=== PATIENT | female | born 1945 | race Caucasian/White ===

== ENCOUNTER 2018-10-07 16:59 | Inpatient (IN) | payer MEDICARE, OTHER ==
[~2018-10-07] VITALS: Ht 175.3 cm; Wt 79.2 kg
--- OUTSIDE RECORDS SUMMARY | 2018-10-07 17:03 | XMS REPORT ---
Author Author CONNIE WAY Organization [facility] Address [address] [place] [address] Care Team Providers Care Product Development Coordinator Name Role Phone CONNIE WAY Unavailable PROBLEMS Type Condition ICD9-CM Code [id number] Code Onset Dates Condition Status SNOMED Code Problem Acquired hypothyroidism E03.9 Active 413704562 Problem HTN (hypertension), benign I10 Active 99762988 Problem Hyperlipidemia E78.5 Active 08135044 Problem Osteoporosis M81.0 Active 75100046 ALLERGIES Substance Reaction Event Type Date Status Lamisil rash Drug Allergy Sep, Active adhesive other Non Drug Allergy Sep, Active ENCOUNTERS Encounter Location Date Diagnosis [place] [id number] [place] [phone] Sep, [address] [address] Sep, Hyperlipidemia E78.5 ; Osteoporosis M81.0 ; Acquired hypothyroidism E03.9 ; HTN (hypertension), benign I10 ; Strain of left shoulder, initial encounter S46.912A and Breast pain, right N64.[address] [phone] 12 Sep, 2018 HTN (hypertension), benign I10 and Acquired hypothyroidism E03.9 [place] [id number] [place] [phone] Sep, HTN (hypertension), benign I10 and Acquired hypothyroidism E03.9 [place] [id number] [place] [phone] Aug, IMMUNIZATIONS No Known Immunizations SOCIAL HISTORY Never Assessed REASON FOR VISIT 6 Months F/U, Left Arm Pain, Right Breast Pain PLAN OF CARE Activity Details Follow Up 6 Months Reason:fu with labs prior VITAL SIGNS Height 5ft 8in in 2018-09-13 Weight 172lb lbs 2018-09-13 BMI 26.15 kg/m2 2018-09-13 Blood pressure systolic 112 mmHg 2018-09-13 Blood pressure diastolic 70 mmHg 2018-09-13 MEDICATIONS Medication Instructions Dosage Frequency Start Date End Date Duration Status Amoxicillin 500 MG Orally every 8 hrs 1 tablet 8h Sep, 07 days Active Aspirin 81 81 MG Orally Once a day 1 tablet 24h 30 day(s) Active Travatan Z 0.004 % Ophthalmic Once a day 1 drop into affected eye in the evening 24h Active Restasis 0.05 % Ophthalmic Twice a day 1 drop into affected eye 12h Active Lisinopril 10 MG Orally Once a day 1 tablet 24h Active Multivitamin Adults - as directed Active Aleve 220 MG Orally every 12 hrs 1 tablet with food or milk as needed 12h Unknown RESULTS No Results PROCEDURES No Known procedures INSTRUCTIONS MEDICATIONS ADMINISTERED No Known Medications MEDICAL (GENERAL) HISTORY Type Description Date Medical History Hypertension Medical History Hyperlipidemia Medical History Thyroid nodule Medical History Osteoporosis Medical History Vulvar lesion Surgical History colonoscopy 05/26/2009 Surgical History Hysterectomy 1991 Surgical History tonsilectomy
[2018-10-07] MEDS ORDERED: ONDANSETRON 4 MG/2 ML (SDV) Z0FRAN ONE (17:16)
--- NOTE | 2018-10-07 17:17 | ED Abdominal Pain ---
General Chief Complaint: Abdominal/GI Problems Stated Complaint: ABD PAIN,VOMITING Nursing Triage Note: REPORTS VOMITING AND DIARRHEA YESTERDAY AFTER EATING IN [place]. NAUSEATED ALL DAY TODAY WITH A DULL ACHE IN HER EPIGASTRIUM AREA. HAS TRIED ANTACIDS AT HOME. Sepsis Screen: No Definite Risk Source of Information: Patient, Family (daughter) Exam Limitations: No Limitations History of Present Illness Date Seen by Provider: Oct 07, 2018 Time Seen by Provider: 17:05 Initial Comments Patient presents to ER by private conveyance with chief complaint of upper abdominal pain across both sides with nausea vomiting for one day progressively getting worse. Every time she tries to eat or drink she has more vomiting. She had some diarrhea yesterday with her last bowel movement the morning. Nothing since then. She feels distended and bloated. She's had a tubal ligation, hysterectomy for her abdominal surgical history. She takes blood pressure medicines but no other significant medical problems. She's had no fevers or chills. She tried taking some antacids with no improvement of her symptoms. No painful urination. Allergies and Home Medications Allergies Coded Allergies: No Known Drug Allergies (Unverified , 10/07/18) Patient Home Medication List Home Medication List Reviewed: Yes Review of Systems Review of Systems Constitutional: No chills, No diaphoresis EENTM: No Blurred Vision, No Double Vision Respiratory: Denies Cough, Denies Shortness of Air Cardiovascular: Denies Chest Pain, Denies Edema Gastrointestinal: See HPI, Abdomen Distended, Abdominal Pain; Denies Constipated; Diarrhea, Nausea, Poor Fluid Intake, Vomiting Genitourinary: Denies Burning, Denies Discharge Musculoskeletal: No back pain, No joint pain Skin: No pruritus, No rash Psychiatric/Neurological: Denies Headache, Denies Numbness Past Rrodbsz-Zmfpay-Ddmqlq Hx Patient Social History Alcohol Use: Denies Use Recreational Drug Use: No Smoking Status: Never a Smoker 2nd Hand Smoke Exposure: Yes Recent Foreign Travel: No Contact w/Someone Who Travel: No Recent Infectious Disease Expo: No Recent Hopitalizations: No Physical Abuse: No Sexual Abuse: No Mistreated: No Fear: No Seasonal Allergies Seasonal Allergies: No Past Medical History Surgeries: Yes Hysterectomy Respiratory: No Cardiac: Yes Hypertension Genitourinary: No Gastrointestinal: No Musculoskeletal: No Endocrine: No HEENT: Yes Glaucoma Cancer: No Psychosocial: No Integumentary: No Blood Disorders: No Physical Exam Vital Signs Vital Signs - First Documented 10/07/18 17:07 Temp 98.4 Pulse 83 Resp 18 B/P (MAP) 165/86 (112) O2 Delivery Room Air Capillary Refill : Less Than 3 Seconds Height/Weight/BMI Height: 5'9.00" Weight: 170lbs. oz. 77.772508nh; BMI Method:Stated General Appearance: WD/WN, no apparent distress HEENT: PERRL/EOMI, pharynx normal Neck: full range of motion, normal inspection Respiratory: lungs clear, normal breath sounds, no respiratory distress, no accessory muscle use Cardiovascular: normal peripheral pulses, regular rate, rhythm, no edema Peripheral Pulses: 2+ Dorsalis Pedis (R), 2+ Left Dors-Pedis (L) Gastrointestinal: no organomegaly, abnormal bowel sounds (very active); No rebound; tenderness (diffusely) Extremities: non-tender, normal inspection, no pedal edema Neurologic/Psychiatric: alert, normal mood/affect, oriented x 3 Skin: normal color, warm/dry Progress/Results/Core Measures Results/Orders Lab Results Laboratory Tests Test 10/07/18 17:12 10/07/18 18:51 Range/Units White Blood Count 7.4 4.3-11.0 10^3/uL Red Blood Count 5.31 4.35-5.85 10^6/uL Hemoglobin 16.1 H 11.5-16.0 G/DL Hematocrit 49 35-52 % Mean Corpuscular Volume 93 80-99 FL Mean Corpuscular Hemoglobin 30 25-34 PG Mean Corpuscular Hemoglobin Concent 33 32-36 G/DL Red Cell Distribution Width 13.8 10.0-14.5 % Platelet Count 202 130-400 10^3/uL Mean Platelet Volume 11.7 H 7.4-10.4 FL Neutrophils (%) (Auto) 81 H 42-75 % Lymphocytes (%) (Auto) 12 12-44 % Monocytes (%) (Auto) 7 0-12 % Eosinophils (%) (Auto) 0 0-10 % Basophils (%) (Auto) 0 0-10 % Neutrophils # (Auto) 6.0 1.8-7.8 X 10^3 Lymphocytes # (Auto) 0.9 L 1.0-4.0 X 10^3 Monocytes # (Auto) 0.5 0.0-1.0 X 10^3 Eosinophils # (Auto) 0.0 0.0-0.3 10^3/uL Basophils # (Auto) 0.0 0.0-0.1 10^3/uL Sodium Level 136 135-145 MMOL/L Potassium Level 3.9 3.6-5.0 MMOL/L Chloride Level 98 98-107 MMOL/L Carbon Dioxide Level 21 21-32 MMOL/L Anion Gap 17 H 5-14 MMOL/L Blood Urea Nitrogen 11 7-18 MG/DL Creatinine 0.93 0.60-1.30 MG/DL Estimat Glomerular Filtration Rate 59 BUN/Creatinine Ratio 12 Glucose Level 134 H 70-105 MG/DL Calcium Level 10.2 H 8.5-10.1 MG/DL Corrected Calcium 10.1 8.5-10.1 MG/DL Magnesium Level 1.9 1.8-2.4 MG/DL Total Bilirubin 0.5 0.1-1.0 MG/DL Aspartate Amino Transf (AST/SGOT) 22 5-34 U/L Alanine Aminotransferase (ALT/SGPT) 17 0-55 U/L Alkaline Phosphatase 97 40-136 U/L Total Protein 7.1 6.4-8.2 GM/DL Albumin 4.1 3.2-4.5 GM/DL Lipase 14 8-78 U/L Urine Color YELLOW Urine Clarity SL CLOUDY Urine pH 6.5 5-9 Urine Specific [place] <=1.005 1.016-1.022 Urine Protein NEGATIVE NEGATIVE Urine Glucose (UA) NEGATIVE NEGATIVE Urine Ketones 1+ H NEGATIVE Urine Nitrite NEGATIVE NEGATIVE Urine Bilirubin NEGATIVE NEGATIVE Urine Urobilinogen 0.2 NORMAL MG/DL Urine Leukocyte Esterase NEGATIVE NEGATIVE Urine RBC (Auto) NEGATIVE NEGATIVE Urine RBC 0-2 /HPF Urine WBC 0-2 /HPF Urine Squamous Epithelial Cells 5-10 /HPF Urine Crystals NONE /LPF Urine Bacteria TRACE /HPF Urine Casts NONE /LPF Urine Mucus NONE /LPF Urine Culture Indicated NO My Orders Orders - JUANCHO GUO Ondansetron Injection (Zofran Injectio (10/07/18 17:16) Cbc With Automated Diff (10/07/18 17:18) Comprehensive Metabolic Panel (10/07/18 17:18) Lipase (10/07/18 17:18) Magnesium (10/07/18 17:18) Ua Culture If Indicated (10/07/18 17:18) Saline Lock/Iv-Start (10/07/18 17:18) Ns Iv 1000 Ml (Sodium Chloride 0.9%) (10/07/18 17:18) Ct Abdomen/Pelvis W (10/07/18 17:18) Ondansetron Injection (Zofran Injectio (10/07/18 17:30) Fentanyl Injection (Sublimaze Injection (10/07/18 17:30) Iohexol Injection (Omnipaque 350 Mg/Ml 1 (10/07/18 18:15) Received Contrast (Contrast Received) (10/07/18 18:15) Sodium Chloride Flush (Catheter Flush Sy (10/07/18 18:15) Ns (Ivpb) (Sodium Chloride 0.9% Ivpb Bag (10/07/18 18:15) Fentanyl Injection (Sublimaze Injection (10/07/18 19:45) Fentanyl Injection (Sublimaze Injection (10/07/18 20:00) Medications Given in ED Current Medications Medications Dose Ordered Sig/Rickey Route Start Time Stop Time Status Last Admin Dose Admin Fentanyl Citrate 25 mcg ONCE ONCE IVP 10/07/18 19:45 10/07/18 19:46 DC 10/07/18 19:53 25 MCG Fentanyl Citrate 50 mcg ONCE ONCE IVP 10/07/18 17:30 10/07/18 17:31 DC 10/07/18 17:24 50 MCG Iohexol 100 ml ONCE ONCE IV 10/07/18 18:15 10/07/18 18:16 DC 10/07/18 18:17 100 ML Ondansetron HCl 4 mg STK-MED ONCE .ROUTE 10/07/18 17:16 10/07/18 17:18 DC 10/07/18 17:21 8 MG Sodium Chloride 10 ml NEEDED PRN IV 10/07/18 18:15 10/07/18 18:17 10 ML Sodium Chloride 100 ml ONCE ONCE IV 10/07/18 18:15 10/07/18 18:16 DC 10/07/18 18:17 80 ML Vital Signs/I&O 10/07/18 17:07 Temp 98.4 Pulse 83 Resp 18 B/P (MAP) 165/86 (112) O2 Delivery Room Air Blood Pressure Mean: 112 Progress Progress Note : Time: 18:00 Progress Note Concern for bowel obstruction versus colitis versus pancreatitis versus PUD. She does not have a positive Block sign. We will get a CT of her abdomen give her a liter fluids and some Zofran and fentanyl for her discomfort. Basic labs to include urinalysis. Diagnostic Imaging Diagonstic Imaging: CT (with contrast IV) Plain Films/CT/US/NM/MRI: abdomen, pelvis Comments [facility] [place], [place] NAME: EAN NARAYANAN [facility] REC#: [id number] PT STATUS: REG ER : 1945 PHYSICIAN: JUANCHO GUO MD ADMIT DATE: 10/07/18/ER FS Draft Date of Exam:10/07/18 CT ABDOMEN/PELVIS W PROCEDURE: CT abdomen and pelvis with contrast. TECHNIQUE: Multiple contiguous axial images were obtained through the abdomen and pelvis after administration of intravenous contrast. INDICATION: Abdominal pain. COMPARISON: There are no prior studies available for comparison. FINDINGS: There are numerous dilated fluid-filled segments of small bowel present. This appearance does suggest a small bowel obstruction. The transition point is most likely in the distal ileum. If further evaluation is desired, then a contrast small bowel exam would be recommended. There is a small amount of free fluid low in the pelvis. There is no solid pelvic mass noted. The uterus is surgically absent. The urinary bladder is grossly unremarkable. The appendix was visualized and is not abnormally thickened. There is cholelithiasis but there is no evidence for an acute cholecystitis. The liver, spleen, pancreas, adrenals, kidneys, aorta and inferior vena cava show no sign of an acute abnormality. The stomach is distended by fluid and consequently difficult to assess. There does appear to be a 3 cm hiatal hernia. The lung bases are clear. The bone windows show no evidence for a fracture or for a destructive lesion. IMPRESSION: 1. The findings do suggest a small bowel obstruction. The transition point is difficult to identify but is most likely in the distal ileum. Recommendations as above. 2. There is a small amount of free fluid low in the pelvis. There is no acute pelvic abnormality noted otherwise. 3. There is cholelithiasis but there is no evidence for acute cholecystitis. The common bile duct and proximal biliary tree are slightly dilated. 4. These results were discussed with Dr. Juancho Guo. Dictated on workstation # [id number] Dict: 10/07/18 1845 Trans: 10/07/18 185 PJE [id number] Interpreted by: XI MCDANIEL MD Electronically signed by: Reviewed: Reviewed by Me, Discussed w/Radiologist Departure Impression Primary Impression: Small bowel obstruction Disposition: XFER SHT-TRM HOSP Condition: Stable Transfer Time Spoke to Accepting Phy: 19:25 Transfer Progress Notes Discussed case with Dr. Perez at 1925 and she agrees the patient. She agrees with sending the patient by POV since her symptoms are under control. Vital signs are okay. She wants IV fluids, nothing by mouth and a KUB upright in the morning. Consult with surgery. Discussed with Dr. Cuba, general surgery on-call and he agrees to consult the patient. Transfer Time: 20:00 Transfer Facility: [facility], [place] Method of Transfer: Private Vehicle (daughter will be driving) Departure-Patient Inst. Referrals: CONNIE WAY MD (PCP/Family) Primary Care Physician JUANCHO GUO Oct 07, 2018 17:17
[2018-10-07] MEDS ORDERED: NS IV 1000 ML 1,000 ML IV SCH (17:18)
[2018-10-07] MEDS ORDERED: ONDANSETRON 4 MG/2 ML (SDV) Z0FRAN IVP ONE (17:30)
[2018-10-07] MEDS ORDERED: fentaNYL INJECTION 100 MCG/2 ML AMP IVP ONE ×3 (17:30→20:00)
[2018-10-07 17:33] LABS: BASOPHILS % (AUTO) 0 % (0-10); EOSINOPHILS % (AUTO) 0 % (0-10); HEMATOCRIT 49 % (35-52); HEMOGLOBIN 16.1 G/DL (11.5-16.0); LYMPHOCYTES # (AUTO) 0.9 X 10^3 (1.0-4.0); LYMPHOCYTES % (AUTO) 12 % (12-44); MEAN CORPUSCULAR HEMOGLOBIN 30 PG (25-34); MEAN CORPUSCULAR HGB CONC 33 G/DL (32-36); MEAN CORPUSCULAR VOLUME 93 FL (80-99); MEAN PLATELET VOLUME 11.7 FL (7.4-10.4); MONOCYTES # (AUTO) 0.5 X 10^3 (0.0-1.0); MONOCYTES % (AUTO) 7 % (0-12); NEUTROPHILS % (AUTO) 81 % (42-75); PLATELET COUNT 202 10^3/uL (130-400); RED CELL DISTRIBUTION WIDTH 13.8 % (10.0-14.5); WHITE BLOOD COUNT 7.4 10^3/uL (4.3-11.0)
[2018-10-07 17:53] LABS: CREATININE SERUM 0.93 MG/DL (0.60-1.30); MAGNESIUM 1.9 MG/DL (1.8-2.4); POTASSIUM 3.9 MMOL/L (3.6-5.0)
[2018-10-07 17:54] LABS: ALBUMIN 4.1 GM/DL (3.2-4.5); BILIRUBIN,TOTAL 0.5 MG/DL (0.1-1.0); CALCIUM 10.2 MG/DL (8.5-10.1); TOTAL PROTEIN 7.1 GM/DL (6.4-8.2)
[2018-10-07] MEDS ORDERED: RECEIVED CONTRAST 20 ML VIAL IV SCH (18:15)
[2018-10-07] MEDS ORDERED: NS 100 ML (IVPB) BAG IV ONE (18:15)
[2018-10-07] MEDS ORDERED: IOHEXOL 350 MG/ML 100 ML (OMNIPAQUE 350) VIAL IV ONE (18:15)
[2018-10-07] MEDS ORDERED: CATHETER FLUSH 10 ML SYR IV PRN (18:15)
--- NOTE | 2018-10-07 18:54 | Diagnostic Imaging Report ---
PROCEDURE: CT abdomen and pelvis with contrast. TECHNIQUE: Multiple contiguous axial images were obtained through the abdomen and pelvis after administration of intravenous contrast. INDICATION: Abdominal pain. COMPARISON: There are no prior studies available for comparison. FINDINGS: There are numerous dilated fluid-filled segments of small bowel present. This appearance does suggest a small bowel obstruction. The transition point is most likely in the distal ileum. If further evaluation is desired, then a contrast small bowel exam would be recommended. There is a small amount of free fluid low in the pelvis. There is no solid pelvic mass noted. The uterus is surgically absent. The urinary bladder is grossly unremarkable. The appendix was visualized and is not abnormally thickened. There is cholelithiasis but there is no evidence for an acute cholecystitis. The common bile duct and proximal biliary tree are slightly dilated but there is no sign of an obstructive calculus. The liver, spleen, pancreas, adrenals, kidneys, aorta and inferior vena cava show no sign of an acute abnormality. The stomach is distended by fluid and consequently difficult to assess. There does appear to be a 3 cm hiatal hernia. The lung bases are clear. The bone windows show no evidence for a fracture or for a destructive lesion. IMPRESSION: 1. The findings do suggest a small bowel obstruction. The transition point is difficult to identify but is most likely in the distal ileum. Recommendations as above. 2. There is a small amount of free fluid low in the pelvis. There is no acute pelvic abnormality noted otherwise. 3. There is cholelithiasis but there is no evidence for acute cholecystitis. The common bile duct and proximal biliary tree are slightly dilated. 4. These results were discussed with Dr. Juancho Guo. CRITICAL FINDING Dictated by: Dictated on workstation # [id number]
[2018-10-07 19:06] LABS: CLARITY,URINE SL CLOUDY; COLOR,URINE YELLOW; GLUCOSE, URINE (UA) NEGATIVE (NEGATIVE); PH,URINE 6.5 (5-9); PROTEIN,URINE NEGATIVE (NEGATIVE)
[2018-10-07 19:07] LABS: BACTERIA,URINE TRACE /HPF; BILIRUBIN,URINE NEGATIVE (NEGATIVE); KETONES,URINE 1+ (NEGATIVE); LEUKOCYTE ESTERASE ,URINE NEGATIVE (NEGATIVE); NITRITE,URINE NEGATIVE (NEGATIVE); RBC,URINE 0-2 /HPF; UROBILINOGEN,URINE 0.2 MG/DL (NORMAL); WBC,URINE 0-2 /HPF
[2018-10-07 21:05] VITALS: BP 139/85
--- NOTE | 2018-10-07 21:05 | NUR ---
EAN NARAYANAN admitted to room 432-1, with an admitting diagnosis of small bowel obstruction, on 10/07/18 from [place] ED via private auto with adult daughter and ambulated up to floor, accompanied by adult daughter.EAN NARAYANAN introduced to surroundings, call light, bed controls, phone, TV, temperature control, lights, meal times, smoking policy, visitor policy, side rail policy, bathrooms and showers. Patient Rights given to patient in the handbook. EAN NARAYANAN verbalizes understanding that [facility] is not responsible for the loss or damage to any personal effects or valuables that are kept in the patients possession during their hospitalization. EAN NARAYANAN verbalizes understanding of Interdisciplinary Patient Education. Patient and/or family were informed about the Rapid Response Team and its purpose. Patient plan of care discussed and no questions or concerns at this time.
[2018-10-07] MEDS ORDERED: ONDANSETRON 4 MG/2 ML (SDV) Z0FRAN IV PRN (21:45)
[2018-10-07] MEDS ORDERED: KETOROLAC 15 MG/ML VIAL IVP PRN (21:45)
[2018-10-07] MEDS ORDERED: fentaNYL INJECTION 100 MCG/2 ML AMP IV PRN (21:45)
[2018-10-07] MEDS: LACTATED RINGERS 1,000 ML IV SCH (22:02)
[2018-10-08] VITALS (7 sets, daily range): BP systolic 108–143; BP diastolic 52–78
[2018-10-08] MEDS ORDERED: TRAV5DRO OP (01:31)
[2018-10-08] MEDS ORDERED: LISI10TA2 PO (01:31)
[2018-10-08] MEDS ORDERED: CYCL1DRO OP (01:31)
[2018-10-08 05:49] LABS: BASOPHILS % (AUTO) 0 % (0-10); EOSINOPHILS # (AUTO) 0.1 10^3/uL (0.0-0.3); EOSINOPHILS % (AUTO) 1 % (0-10); HEMATOCRIT 42 % (35-52); HEMOGLOBIN 13.6 G/DL (11.5-16.0); LYMPHOCYTES # (AUTO) 1.3 X 10^3 (1.0-4.0); LYMPHOCYTES % (AUTO) 21 % (12-44); MEAN CORPUSCULAR HEMOGLOBIN 30 PG (25-34); MEAN CORPUSCULAR HGB CONC 33 G/DL (32-36); MEAN CORPUSCULAR VOLUME 93 FL (80-99); MEAN PLATELET VOLUME 11.7 FL (7.4-10.4); MONOCYTES # (AUTO) 0.8 X 10^3 (0.0-1.0); MONOCYTES % (AUTO) 14 % (0-12); NEUTROPHILS # (AUTO) 3.8 X 10^3 (1.8-7.8); NEUTROPHILS % (AUTO) 63 % (42-75); PLATELET COUNT 157 10^3/uL (130-400); RED CELL DISTRIBUTION WIDTH 14.3 % (10.0-14.5)
[2018-10-08 06:05] LABS: BUN/CREATININE RATIO 13; CALCIUM 9.3 MG/DL (8.5-10.1); CARBON DIOXIDE 22 MMOL/L (21-32); CHLORIDE 108 MMOL/L (98-107); CREATININE SERUM 0.89 MG/DL (0.60-1.30); GFR ESTIMATED > 60; GLUCOSE 97 MG/DL (70-105); SODIUM 138 MMOL/L (135-145)
[2018-10-08] MEDS: LACTATED RINGERS 1,000 ML IV SCH ×3 (07:20→23:27)
--- NOTE | 2018-10-08 09:50 | Diagnostic Imaging Report ---
INDICATION: Abdominal pain, small bowel obstruction. COMPARISON: CT 10/08/2015. DISCUSSION: Supine and upright views of the abdomen were obtained. Abnormal small bowel loops are again noted with gaseous distention and scattered air-fluid levels consistent with small bowel obstruction. The colon is decompressed. No pneumatosis or pneumoperitoneum. Levoscoliosis of the lumbar spine is present. The lung bases are unremarkable. IMPRESSION: 1. Changes consistent with small bowel obstruction. Dictated by: Dictated on workstation # [id number]
--- NOTE | 2018-10-08 11:22 | Consultation ---
History of Present Illness History of Present Illness Patient Consulted On(juan/time) 10/08/18 11:20 Date Seen by Provider: Oct 08, 2018 Time Seen by Provider: 10:45 Reason for Visit: Central, colicky abdominal pain of acute onset with nausea and diarrhe History of Present Illness about 48 hours ago, when she was shopping, she developed severe, colicky central abdominal pain, followed by watery diarrhea. She felt nauseous and the intensity of pain increased, leading to an emergency room visit [address] scan shows a large gallstone and dilated proximal small bowel loops, indicating partial small bowel obstruction. There does not appear to be any pneumobilia, therefore, ruling out gallstone ileus. She has since passed flatus and the pain has resolved. Allergies and Home Medications Allergies Coded Allergies: No Known Drug Allergies (Unverified , 10/07/18) Home Medications Cyclosporine 1 Each Droperette, 1 EACH OP BID, (Reported) Lisinopril 10 Mg Tablet, 10 MG PO HS, (Reported) Travoprost 5 Ml Drops, 5 ML OP HS, (Reported) Patient Home Medication List Home Medication List Reviewed: Yes Past Dagfifk-Skdfoi-Dobzkg Hx Patient Social History Alcohol Use: Denies Use Recreational Drug Use: No Smoking Status: Never a Smoker 2nd Hand Smoke Exposure: Yes Recent Foreign Travel: No Contact w/Someone Who Travel: No Recent Infectious Disease Expo: No Recent Hopitalizations: No Physical Abuse: No Sexual Abuse: No Mistreated: No Fear: No Immunizations Up To Date Date of Pneumonia Vaccine: Oct 07, 2016 Date of Influenza Vaccine: Jul 09, 2018 Seasonal Allergies Seasonal Allergies: No Past Medical History Surgeries: Yes Hysterectomy Respiratory: No Cardiac: Yes Hypertension Genitourinary: No Gastrointestinal: No Musculoskeletal: No Endocrine: No HEENT: Yes Glaucoma Cancer: No Psychosocial: No Integumentary: No Blood Disorders: No Review of Systems-General EENTM: no symptoms reported Respiratory: no symptoms reported Cardiovascular: no symptoms reported Gastrointestinal: see HPI Genitourinary: no symptoms reported Musculoskeletal: no symptoms reported Skin: no symptoms reported Psychiatric/Neurological: No Symptoms Reported Physical Exam-General Problems Physical Exam Vital Signs Vital Signs - First Documented 10/07/18 17:07 Temp 98.4 Pulse 83 Resp 18 B/P (MAP) 165/86 (112) O2 Delivery Room Air Capillary Refill : Less Than 3 Seconds General Appearance: no apparent distress Neck: normal inspection Respiratory: lungs clear Cardiovascular: regular rate, rhythm Gastrointestinal: non tender, soft Rectal: deferred Extremities: non-tender Neurologic/Psychiatric: alert, oriented x 3 Skin: warm/dry Comments lower midline scar with no incisional hernia. No inguinal or obvious femoral hernia Assessment/Plan Assessment/Plan Admission Diagnosis/Plan lady with radiologic features of partial small bowel obstruction, clinically improving. A symptomatic, large gallstone. Will treat conservatively and obtain an ultrasound of the gallbladder in the morning. Clinical Quality Measures DVT/VTE Risk/Contraindication: Risk Factor Score Per Nursin RFS Level Per Nursing on Admit: 2=Moderate BO KINGSTON MD Oct 08, 2018 11:22
--- NOTE | 2018-10-08 11:32 | History & Physical-Hospitalist ---
History of Present Illness HPI/Chief Complaint This is a 73-year-old white female who had been well until about 48 hours ago when she began having diarrhea. She took an Imodium and then began having vomiting that was intractable. He also had abdominal pain associated with this. She presented to the emergency room where CT showed possible small bowel obstruction. This morning at my interview she was passing flatus and was feeling somewhat better. She is having less distention than she had. She had never had a previous episode like this. Source: patient Exam Limitations: no limitations Date Seen 10/08/18 Time Seen by a Provider: 11:00 Attending Physician She Perez MD PCP Connie Carvajal MD Referring Physician Date of Admission Oct 07, 2018 at 20:24 Home Medications & Allergies Home Medications Reviewed patient Home Medication Reconciliation performed by pharmacy medication reconciliations robotic maintenance technician and/or nursing. Patients Allergies have been reviewed. Allergies Allergies Coded Allergies No Known Drug Allergies (Unverified10/07/18) Past Pmjawmf-Tnzxuy-Kuzopp Hx Past Med/Social Hx: Reviewed Nursing Past Med/Soc Hx Patient Social History Marrital Status: Employed/Student: retired Alcohol Use: Denies Use Recreational Drug Use: No Smoking Status: Never a Smoker 2nd Hand Smoke Exposure: Yes Recent Foreign Travel: No Contact w/other who traveled: No Recent Hopitalizations: No Recent Infectious Disease Expo: No Immunizations Up To Date Date of Pneumonia Vaccine: Oct 07, 2016 Date of Influenza Vaccine: Jul 09, 2018 Seasonal Allergies Seasonal Allergies: No Past Medical History Surgeries: Hysterectomy, Tonsillectomy Cardiac: Hypertension HEENT: Glaucoma History of Blood Disorders: No Family History No Pertinent Family Hx Review of Systems Constitutional: see HPI EENTM: no symptoms reported Respiratory: no symptoms reported Cardiovascular: no symptoms reported Gastrointestinal: abdominal pain, diarrhea, nausea, vomiting Genitourinary: no symptoms reported Musculoskeletal: no symptoms reported Skin: no symptoms reported Psychiatric/Neurological: No Symptoms Reported Physical Exam Physical Exam Vital Signs Vital Signs - First Documented 10/07/18 17:07 Temp 98.4 Pulse 83 Resp 18 B/P (MAP) 165/86 (112) O2 Delivery Room Air Capillary Refill : Less Than 3 Seconds Height, Weight, BMI Height: 5'9.00" Weight: 174lbs. 9.0oz. 79.729473kl; 25.8 BMI Method:Stated General Appearance: No Apparent Distress, WD/WN HEENT: PERRL/EOMI, TMs Normal, Normal ENT Inspection, Pharynx Normal Neck: Full Range of Motion, Normal Inspection, Non Tender, Supple Respiratory: Chest Non Tender, Lungs Clear, Normal Breath Sounds, No Accessory Muscle Use, No Respiratory Distress Cardiovascular: Regular Rate, Rhythm, No Gallop, No JVD, No Murmur, Normal Peripheral Pulses Gastrointestinal: Normal Bowel Sounds, No Organomegaly, Soft, Guarding Rectal: Deferred Back: Normal Inspection Extremity: Normal Capillary Refill, Normal Inspection, Normal Range of Motion, Non Tender, No Calf Tenderness Neurologic/Psychiatric: Alert, Oriented x3, No Motor/Sensory Deficits, Normal Mood/Affect, tents assembler II-XII Norm as Tested Skin: Normal Color, Warm/Dry Results Results/Procedures Labs Laboratory Tests 10/07/18 17:12 10/08/18 05:20 Patient resulted labs reviewed. Imaging: Reviewed Imaging Report Assessment/Plan Admission Diagnosis Small bowel obstruction possibly resolving Vomiting secondary to number 1 Diarrhea History of hypertension Cholelithiasis Glaucoma Surgery has already seen the patient- appreciate their input gallbladder sonogram in the morning. Admission Status: Observation Diagnosis/Problems Diagnosis/Problems (1) Small bowel obstruction Status: Acute (2) Cholelithiasis Qualifiers: Cholelithiasis location: gallbladder (3) Hypertension Status: Chronic Qualifiers: Hypertension type: essential hypertension Qualified Codes: I10 - Essential (primary) hypertension Clinical Quality Measures DVT/VTE Risk/Contraindication: Risk Factor Score Per Nursin RFS Level Per Nursing on Admit: 2=Moderate Copy Copies To 1: CONNIE CARVAJAL MD, KATHLEEN M MD Oct 08, 2018 11:32
[2018-10-08] MEDS: METOCLOPRAMIDE INJ 10 MG/2 ML (REGLAN) IVP SCH ×3 (11:59→23:27)
[2018-10-08] MEDS ORDERED: ARTIFICAL TEARS 0.4 ML UNIT DOSE (REFRESH PLUS) OU PRN (12:00)
[2018-10-08] MEDS ORDERED: NON-FORMULARY MEDICATION 1 EA EA (Cyclosporine (Restasis) 1 EACH) OP SCH (21:00)
[2018-10-08] MEDS ORDERED: TRAVOPROST OP SCH (21:00)
[2018-10-08] MEDS ORDERED: lisINopril 10 MG (PRINIVIL) TABLET PO SCH (21:00)
[2018-10-08] MEDS ORDERED: LATANOPROST 0.005% (XALATAN) OPHTH SOLN 2.5 ML OU SCH (21:00)
[2018-10-09 04:00] VITALS: BP 120/79
[2018-10-09] MEDS: METOCLOPRAMIDE INJ 10 MG/2 ML (REGLAN) IVP SCH ×2 (05:03→13:20)
[2018-10-09 06:46] LABS: BASOPHILS % (AUTO) 0 % (0-10); EOSINOPHILS # (AUTO) 0.2 10^3/uL (0.0-0.3); EOSINOPHILS % (AUTO) 4 % (0-10); HEMATOCRIT 38 % (35-52); HEMOGLOBIN 12.4 G/DL (11.5-16.0); LYMPHOCYTES # (AUTO) 1.4 X 10^3 (1.0-4.0); LYMPHOCYTES % (AUTO) 29 % (12-44); MEAN CORPUSCULAR HEMOGLOBIN 30 PG (25-34); MEAN CORPUSCULAR HGB CONC 32 G/DL (32-36); MEAN CORPUSCULAR VOLUME 94 FL (80-99); MEAN PLATELET VOLUME 11.3 FL (7.4-10.4); MONOCYTES # (AUTO) 0.6 X 10^3 (0.0-1.0); MONOCYTES % (AUTO) 12 % (0-12); NEUTROPHILS # (AUTO) 2.6 X 10^3 (1.8-7.8); NEUTROPHILS % (AUTO) 55 % (42-75); PLATELET COUNT 152 10^3/uL (130-400); RED CELL DISTRIBUTION WIDTH 14.3 % (10.0-14.5); WHITE BLOOD COUNT 4.7 10^3/uL (4.3-11.0)
[2018-10-09 07:09] LABS: ALANINE AMINOTRANSFERASE 14 U/L (0-55); ALKALINE PHOSPHATASE 57 U/L (40-136); BILIRUBIN,TOTAL 0.4 MG/DL (0.1-1.0); BUN/CREATININE RATIO 12; CALCIUM 8.9 MG/DL (8.5-10.1); CARBON DIOXIDE 23 MMOL/L (21-32); CREATININE SERUM 0.84 MG/DL (0.60-1.30); GFR ESTIMATED > 60; GLUCOSE 91 MG/DL (70-105)
[2018-10-09 07:29] LABS: CHLORIDE 112 MMOL/L (98-107); POTASSIUM 3.8 MMOL/L (3.6-5.0); SODIUM 142 MMOL/L (135-145)
[2018-10-09] MEDS: LACTATED RINGERS 1,000 ML IV SCH (07:43)
[2018-10-09 08:00] VITALS: BP 138/84
--- NOTE | 2018-10-09 08:54 | Progress Note (SOAP) ---
Subjective Date Seen by a Provider: Oct 09, 2018 Time Seen by a Provider: 06:55 Subjective/Events-last exam abdominal pain resolved. No bloating or vomiting. Passing flatus. Gallbladder ultrasound pending Review of Systems General: No Chills, No Night Sweats, No Fatigue, No Malaise HEENT: No Head Aches, No Eye Pain, No Ear Pain, No Dysphasia, No Sinus Congestion, No Post Nasal Drip, No Sore Throat Pulmonary: No Dyspnea, No Cough, No Pleuritic Chest Pain Cardiovascular: No: Chest Pain, Palpitations, Orthopnea, Paroxysmal Noc. Dyspnea, Edema, Lt Headedness Gastrointestinal: No: Nausea, Vomiting, Abdominal Pain, Diarrhea, Constipation , Melena, Hematochezia Genitourinary: No Dysuria, No Frequency, No Incontinence, No Hematuria, No Retention Musculoskeletal: No: other, neck pain, shoulder pain, arm pain, back pain, hand pain, leg pain, foot pain Neurological: No: Weakness, Numbness, Incoordination, Change in speech, Confusion, Seizures, Other Objective Exam Vital Signs Date Time Temp Pulse Resp B/P (MAP) Pulse Ox O2 Delivery O2 Flow Rate FiO2 10/09/18 04:00 99.3 71 16 120/79 (93) 92 Room Air 10/08/18 23:50 99.5 77 18 108/52 (70) 94 Room Air 10/08/18 20:00 95 Room Air 10/08/18 19:16 99.6 88 16 131/74 (93) 91 Room Air 10/08/18 16:25 99.0 76 20 123/69 (87) 94 Room Air 10/08/18 12:00 99.9 76 18 128/77 (94) 96 Room Air I & O 10/09/18 07:00 Intake Total 1070 ml Output Total 2225 ml Balance -1155 ml Capillary Refill : Less Than 3 Seconds General Appearance: No Apparent Distress Neck: Normal Inspection Respiratory: Lungs Clear Cardiovascular: Regular Rate, Rhythm Gastrointestinal: non tender, soft Extremity: Normal Inspection Neurologic/Psychiatric: Alert, Oriented x3 Skin: Warm/Dry Results Lab Laboratory Tests 10/09/18 06:24: White Blood Count 4.7, Red Blood Count 4.10L, Hemoglobin 12.4, Hematocrit 38, Mean Corpuscular Volume 94, Mean Corpuscular Hemoglobin 30, Mean Corpuscular Hemoglobin Concent 32, Red Cell Distribution Width 14.3, Platelet Count 152, Mean Platelet Volume 11.3H, Neutrophils (%) (Auto) 55, Lymphocytes (%) (Auto) 29 , Monocytes (%) (Auto) 12, Eosinophils (%) (Auto) 4, Basophils (%) (Auto) 0, Neutrophils # (Auto) 2.6, Lymphocytes # (Auto) 1.4, Monocytes # (Auto) 0.6, Eosinophils # (Auto) 0.2, Basophils # (Auto) 0.0, Sodium Level 142, Potassium Level 3.8, Chloride Level 112H, Carbon Dioxide Level 23, Anion Gap 7, Blood Urea Nitrogen 10, Creatinine 0.84, Estimat Glomerular Filtration Rate > 60, BUN/ Creatinine Ratio 12, Glucose Level 91, Calcium Level 8.9, Corrected Calcium 9.7 , Total Bilirubin 0.4, Aspartate Amino Transf (AST/SGOT) 17, Alanine Aminotransferase (ALT/SGPT) 14, Alkaline Phosphatase 57, Total Protein 5.0L, Albumin 3.0L Assessment/Plan Assessment/Plan Assess & Plan/Chief Complaint lady with radiologic features of partial small bowel obstruction, clinically improving. Asymptomatic, large gallstone. Will treat conservatively and obtain an ultrasound of the gallbladder in the morning. lady with clinical features of partial small bowel obstruction, improving. Asymptomatic, large gallstone, gallbladder ultrasound pending. Reasonable to obtain a water soluble contrast study to rule out mechanical obstruction. Should be negative, she will be discharged home later today and arrangements for outpatient cholecystectomy Final Diagnosis partial small bowel obstruction, resolved. Gallstone Clinical Quality Measures DVT/VTE Risk/Contraindication: Risk Factor Score Per Nursin RFS Level Per Nursing on Admit: 2=Moderate BO KINGSTON MD Oct 09, 2018 08:54
[2018-10-09] MEDS ORDERED: lisINopril 10 MG (PRINIVIL) TABLET PO SCH (09:00)
--- NOTE | 2018-10-09 10:23 | Discharge Summary-Hospitalist ---
Diagnosis/Chief Complaint Date of Admission Oct 07, 2018 at 20:24 Date of Discharge Discharge Date: Oct 09, 2018 Admission Diagnosis Small bowel obstruction possibly resolving Vomiting secondary to number 1 Diarrhea History of hypertension Cholelithiasis Glaucoma Surgery has already seen the patient- appreciate their input gallbladder sonogram in the morning. Discharge Diagnosis (1) Small bowel obstruction Status: Acute (2) Cholelithiasis (3) Hypertension Status: Chronic Discharge Summary Procedures/Consulations Dr Cuba- Surgery Discharge Physical Exam Allergies: Coded Allergies: No Known Drug Allergies (Unverified , 10/07/18) Vitals & I&Os Vital Signs Date Time Temp Pulse Resp B/P (MAP) Pulse Ox O2 Delivery O2 Flow Rate FiO2 10/09/18 08:00 95 Room Air 10/09/18 08:00 97.8 66 18 138/84 (102) General Appearance: No Apparent Distress, WD/WN Respiratory: Lungs Clear, No Accessory Muscle Use, No Respiratory Distress Cardiovascular: Regular Rate, Rhythm, No Murmur Gastrointestinal: Normal Bowel Sounds, Non Tender, Soft Neurologic/Psychiatric: Alert, Oriented x3, Normal Mood/Affect Hospital Course Pt was admitted due to partial small bowel obstruction per CT abdomen. Surgery was consulted and symptoms were resolving with bowel rest and IVF. She had an uneventful hospital course. CT Abdomen did revealed cholelithiasis without cholecystitis. Gallbladder usg was done and she is to schedule for outpatient cholecystectomy with Dr Cuba. Labs (last 24 hrs) Laboratory Tests 10/09/18 06:24: White Blood Count 4.7, Red Blood Count 4.10L, Hemoglobin 12.4, Hematocrit 38, Mean Corpuscular Volume 94, Mean Corpuscular Hemoglobin 30, Mean Corpuscular Hemoglobin Concent 32, Red Cell Distribution Width 14.3, Platelet Count 152, Mean Platelet Volume 11.3H, Neutrophils (%) (Auto) 55, Lymphocytes (%) (Auto) 29 , Monocytes (%) (Auto) 12, Eosinophils (%) (Auto) 4, Basophils (%) (Auto) 0, Neutrophils # (Auto) 2.6, Lymphocytes # (Auto) 1.4, Monocytes # (Auto) 0.6, Eosinophils # (Auto) 0.2, Basophils # (Auto) 0.0, Sodium Level 142, Potassium Level 3.8, Chloride Level 112H, Carbon Dioxide Level 23, Anion Gap 7, Blood Urea Nitrogen 10, Creatinine 0.84, Estimat Glomerular Filtration Rate > 60, BUN/ Creatinine Ratio 12, Glucose Level 91, Calcium Level 8.9, Corrected Calcium 9.7 , Total Bilirubin 0.4, Aspartate Amino Transf (AST/SGOT) 17, Alanine Aminotransferase (ALT/SGPT) 14, Alkaline Phosphatase 57, Total Protein 5.0L, Albumin 3.0L Patient resulted labs reviewed. Pending Labs Laboratory Tests 10/09/18 06:24: White Blood Count 4.7, Red Blood Count 4.10, Hemoglobin 12.4, Hematocrit 38, Mean Corpuscular Volume 94, Mean Corpuscular Hemoglobin 30, Mean Corpuscular Hemoglobin Concent 32, Red Cell Distribution Width 14.3, Platelet Count 152, Mean Platelet Volume 11.3, Neutrophils (%) (Auto) 55, Lymphocytes (%) (Auto) 29 , Monocytes (%) (Auto) 12, Eosinophils (%) (Auto) 4, Basophils (%) (Auto) 0, Neutrophils # (Auto) 2.6, Lymphocytes # (Auto) 1.4, Monocytes # (Auto) 0.6, Eosinophils # (Auto) 0.2, Basophils # (Auto) 0.0, Sodium Level 142, Potassium Level 3.8, Chloride Level 112, Carbon Dioxide Level 23, Anion Gap 7, Blood Urea Nitrogen 10, Creatinine 0.84, Estimat Glomerular Filtration Rate > 60, BUN/ Creatinine Ratio 12, Glucose Level 91, Calcium Level 8.9, Corrected Calcium 9.7 , Total Bilirubin 0.4, Aspartate Amino Transf (AST/SGOT) 17, Alanine Aminotransferase (ALT/SGPT) 14, Alkaline Phosphatase 57, Total Protein 5.0, Albumin 3.0 Imaging: Reviewed Imaging Report Discussion & Recommendations Discharge Planning: >30 minutes discharge planning Discharge Home Medications: Active Scripts Active Reported Travatan Z (Travoprost) 5 Ml Drops 5 Ml OP HS Restasis (Cyclosporine) 1 Each Droperette 1 Each OP BID Lisinopril 10 Mg Tablet 10 Mg PO HS Instructions to patient/family Please see electronic discharge instructions given to patient. Clinical Quality Measures DVT/VTE Risk/Contraindication: Risk Factor Score Per Nursin RFS Level Per Nursing on Admit: 2=Moderate Problem Qualifiers (1) Cholelithiasis: Cholelithiasis location: gallbladder (2) Hypertension: Hypertension type: essential hypertension Qualified Codes: I10 - Essential ( primary) hypertension MARCY CHOUDHURY MD Oct 09, 2018 10:22
--- NOTE | 2018-10-09 10:40 | Discharge Inst-Simple/Standard ---
Discharge Inst-Standard Patient Instructions/Follow Up Plan of Care/Instructions/FU: Please continue to take your medications as written. Please follow up with Dr Carvajal and Dr Cuba as scheduled. Activity as Tolerated: Yes Discharge Diet: No Restrictions Return to The Hospital For: Abdominal pain, worsening distention, no BM or passing gas for >24 hours, if you feel you are getting worse. MARCY CHOUDHURY MD Oct 09, 2018 10:29
[2018-10-09] MEDS ORDERED: DIATRIZOATE MEGLUM/SODIUM 37% 120 ML (GASTROGRAFIN) PO ONE (11:45)
[2018-10-09 12:00] VITALS: BP 137/84
--- NOTE | 2018-10-09 12:21 | Diagnostic Imaging Report ---
PROCEDURE: US Gallbladder. TECHNIQUE: Multiple real-time grayscale images were obtained over the right upper quadrant in various projections. INDICATION: Gallstones. FINDINGS: Liver is normal in size at 17.2 cm. Portal vein is patent and shows normal direction of flow. No discrete liver mass is identified. Gallbladder contains multiple stones. No significant wall thickening is seen. There is no pericholecystic fluid or biliary ductal dilatation. The pancreas was obscured by bowel gas. Right kidney is unremarkable. There is no ascites. IMPRESSION: Cholelithiasis without evidence of acute cholecystitis. Dictated by: Dictated on workstation # [id number]
[2018-10-09 16:40] VITALS: BP 135/78
[2018-10-09 18:15] VITALS: BP 137/84
--- NOTE | 2018-10-09 18:15 | NUR ---
REPORT FROM SMALL BOWEL FOLLOW THROUGH NOT ENTERED YET. DR. KEI STEWART'D DC. DISCHARGE INSTRUCTIONS GIVEN TO PATIENT WITH TIME ALLOWED FOR QUESTIONS. IV REMOVED WITH CATHETER TIP INTACT. PATIENT LEFT VIA WHEELCHAIR ACCOMPANIED BY STAFF AND ADULT DAUGHTER. LEFT VIA PRIVATE VEHICLE.
--- NOTE | 2018-10-09 19:01 | Diagnostic Imaging Report ---
INDICATION: Partial small bowel obstruction noted on a recent CT study from 10/07/2018. COMPARISON: CT exam from 10/07/2018. TECHNIQUE: The patient was given 120 cc of Gastrografin contrast orally and serial radiographs over the abdomen were obtained. FINDINGS: The preliminary radiograph appears to be improved when compared with the dormitory supervisor radiograph of the abdomen from 10/07/2018. The initial image demonstrates contrast throughout the stomach with prompt emptying into the proximal small bowel loops. There appears to be normal transit of contrast through the small bowel into the right colon. Contrast is seen in the colon at 1 hour. No obstruction is seen. The mucosal fold pattern is unremarkable. No intrinsic or extrinsic mass is seen. IMPRESSION: Unremarkable small bowel study. Dictated by: Dictated on workstation # [id number]
== END 2018-10-09 18:15 | disposition home or self-care (01) | DRG 390 ==
LOC: EDUNIT# 16:59 → ER FS 17:01 → 4TH 20:24
PROVIDERS: ADMIT Internal Medicine; ATTEND Internal Medicine
DX: K56.600 Partial intestinal obstruction, unspecified as to cause (principal); K80.20 Calculus of gallbladder without cholecystitis without obstruction; I10 Essential (primary) hypertension; H40.9 Unspecified glaucoma
CPT/HCPCS: 36415; 74019; 74177; 74250; 76705; 80048; 80053; 81000; 83690; 83735; 85025

== ENCOUNTER 2018-10-27 14:39 | Outpatient (CLI) | payer MEDICARE, OTHER ==
[~2018-10-27] VITALS: Ht 175.3 cm; Wt 78.9 kg
[~2018-10-27 14:39] MED LIST: CYCL1DRO OP; LISI10TA2 PO; TRAV5DRO OP
[2018-10-27] MEDS ORDERED: MV-M1TAB57 PO (14:57)
[2018-10-27] MEDS ORDERED: ASCO500C17 PO (14:57)
[2018-10-27] MEDS ORDERED: ASPI-586 PO (14:57)
== END 2018-10-27 15:01 | disposition home or self-care (01) ==
LOC: PREOP 14:39
PROVIDERS: ATTEND Surgery
DX: Z01.818 Encounter for other preprocedural examination (principal)

== ENCOUNTER 2018-11-02 10:02 | Day surgery (SDC) | payer MEDICARE, OTHER ==
[~2018-11-02] VITALS: Ht 175.3 cm; Wt 78.9 kg
[~2018-11-02 10:02] MED LIST changes: +ASCO500C17 PO; +ASPI-586 PO; +MV-M1TAB57 PO
[2018-11-02] MEDS ORDERED: ceFAZolin INJECTION 1,000 MG ONE (10:07)
[2018-11-02] MEDS ORDERED: WATER (STERILE) FOR INJECTION 10 ML ONE (10:07)
[2018-11-02] MEDS ORDERED: LIDOCAINE PF 2% 5 ML (XYLOCAINE) VIAL ONE (10:25)
[2018-11-02] MEDS ORDERED: ROCURONIUM 10 MG/ML 5 ML SYRINGE IV ONE (10:25)
[2018-11-02] MEDS ORDERED: DEXAMETHASONE 10 MG/ML (DECADRON) 1 ML VIAL ONE (10:25)
[2018-11-02] MEDS ORDERED: SEVOFLURANE (ULTANE) 15 ML INHAL SOLN ONE (10:25)
[2018-11-02] MEDS ORDERED: fentaNYL INJECTION 100 MCG/2 ML AMP ONE (10:25)
[2018-11-02] MEDS ORDERED: ONDANSETRON 4 MG/2 ML (SDV) Z0FRAN ONE ×2 (10:25→12:33)
[2018-11-02] MEDS ORDERED: proPOfol 200 MG/20 ML (DIPRIVAN) VIAL IV ONE (10:25)
[2018-11-02] MEDS ORDERED: IOPAMIDOL 61% 30 ML (ISOVUE 300) VIAL IV ONE ×2 (10:26→11:42)
[2018-11-02] MEDS ORDERED: BUP/EPI 0.5% 1:200,000 (SENSORCAINE) 30 ML VIAL ONE ×2 (10:26→11:42)
[2018-11-02] MEDS ORDERED: LIDOCAINE 1% INJ 20 ML 20 ML VIAL ONE ×2 (10:27→11:42)
[2018-11-02] MEDS ORDERED: GLYCOPYRROLATE 0.2 MG/ML (ROBINUL) 2 ML VIAL ONE (10:30)
[2018-11-02] MEDS ORDERED: NEOSTIGMINE 1 MG/ML 5 ML SYRINGE ONE (10:30)
--- NOTE | 2018-11-02 10:35 | Progress Note-Pre Operative ---
Pre-Operative Progress Note H&P Reviewed The H&P was reviewed, patient examined and no changes noted. Date Seen by Provider: Nov 02, 2018 Time Seen by Provider: 10:35 Date H&P Reviewed: Nov 02, 2018 Time H&P Reviewed: 10:35 Pre-Operative Diagnosis: symptomatic cholelithiasis MAIA MCNAIR DO Nov 02, 2018 10:35
[2018-11-02 10:39] VITALS: BP 160/98
[2018-11-02] MEDS ORDERED: LACTATED RINGERS 1,000 ML IV PRN (10:52)
[2018-11-02] MEDS ORDERED: ceFAZolin INJECTION 1,000 MG in WATER (STERILE) FOR INJECTION 10 ML IV ONE (11:00)
--- NOTE | 2018-11-02 11:32 | Progress Note-Post Operative ---
Post-Operative Progess Note Surgeon (s)/Rest Room Maid (s) Surgeon MAIA MCNAIR DO Rest Room Maid: Dr. Reeves Pre-Operative Diagnosis symptomatic cholelithiasis Post-Operative Diagnosis same Procedure & Operative Findings Date of Procedure 11/02/18 Procedure Performed/Findings lap valarie c ioc Anesthesia Type gen Estimated Blood Loss Estimated blood loss (mL): min Specimens/Packing Specimens Removed gallbladder MAIA MCNAIR DO Nov 02, 2018 11:32
[2018-11-02] MEDS ORDERED: DOCU-143 PO (11:33)
[2018-11-02] MEDS ORDERED: ACHD5005 PO (11:33)
--- NOTE | 2018-11-02 11:35 | Discharge Inst-Simple/Standard ---
Discharge Inst-Standard Discharge Medications New, Converted or Re-Newed RX: RX on Chart Patient Instructions/Follow Up Plan of Care/Instructions/FU: 2 weeks Alejandrina Activity as Tolerated: No Discharge Diet: Regular Diet Other Inst to Patient Follow up Appt: Make appointment for 2 weeks. Instructions: No lifting greater than 10 pounds. No strenuous activity. May shower in 24 hours, no tub bath or soaking. Use incentive spirometer at home as directed. No Smoking Skin/Wound Care: You have special glue over incisions it will fall off on its own. Symptoms to Report: Appetite Changes, Extremity Discoloration, Numbness/Tingling, Swelling Increased , Bleeding Excessive, Eyesight Changes, Pain Increased, Urine Color Change, Constipation(Persistent), Fever over 101 degree F, Pain/Pressure in chest, Urinating Difficulty, Cough Up/Vomit Blood, Heart Beat Irreg/Pounding, Pain/ Pressure in jaw, Vaginal Bleeding Increase, Cramps in feet or legs, Lightheadedness, Pain/Pressure in shoulder, Diarrhea(Persistent), Memory Changes Suddenly, Questions/Concerns, Weight gain consecutive days, Dizziness/ Fainting, Nausea/Vomiting, Shortness of Breath, Weight gain over 2 pounds. If eyes or skin turn yellow notify physician. If questions or concerns contact your physician Or seek help at emergency department. MAIA MCNAIR DO Nov 02, 2018 11:35
[2018-11-02] MEDS ORDERED: morphine INJ 10 MG/ML 1ML (SYR OR VIAL) IVP ONE (11:45)
[2018-11-02] MEDS ORDERED: ONDANSETRON 4 MG/2 ML (SDV) Z0FRAN IVP PRN (11:45)
[2018-11-02] MEDS: morphine INJ 10 MG/ML 1ML (SYR OR VIAL) ONE ×2 (12:05→13:09)
[2018-11-02 12:45] VITALS: BP 122/66
[2018-11-02 13:15] VITALS: BP 127/69
[2018-11-02] MEDS ORDERED: HYDROcodone/APAP 5 MG/325 MG (LORTAB) TAB ONE (13:22)
[2018-11-02] MEDS ORDERED: HYDROcodone/APAP 5 MG/325 MG (LORTAB) TAB PO ONE (13:30)
--- NOTE | 2018-11-02 13:38 | Anesthesia-General Post-Op ---
General Patient Condition Mental Status/LOC: Same as Preop Cardiovascular: Satisfactory Nausea/Vomiting: Absent Respiratory: Satisfactory Pain: Controlled Complications: Absent Post Op Complications Complications None Follow Up Care/Instructions Patient Instructions None needed. Anesthesia/Patient Condition Patient Condition Patient is doing well, no complaints, stable vital signs, no apparent adverse anesthesia problems. FAUSTINO SALAS DO Nov 02, 2018 13:38
[2018-11-02 13:45] VITALS: BP 124/71
[2018-11-02 14:45] VITALS: BP 125/70
[2018-11-02 15:00] VITALS: BP 125/70
--- NOTE | 2018-11-02 15:55 | OPERATIVE REPORT ---
DATE OF SERVICE: 11/02/2018 PREOPERATIVE DIAGNOSIS: Symptomatic cholelithiasis. POSTOPERATIVE DIAGNOSIS: Symptomatic cholelithiasis. PROCEDURE: Laparoscopic cholecystectomy with intraoperative cholangiogram. SURGEON: Maia Tinoco DO LOOP MACHINE OPERATOR: Dr. Reeves, assisted in retraction, dissection and closure. ANESTHESIA: General. ESTIMATED BLOOD LOSS: Minimal. COMPLICATIONS: None. INDICATIONS: The patient is a 73-year-old female with symptomatic cholelithiasis. She understands risks and benefits of procedure and wished to proceed with procedure. Consent was signed on the chart. DESCRIPTION OF PROCEDURE: The patient was taken to the operating suite, prepped and draped in a sterile fashion. A timeout was performed. A 12 mm incision was made just above the umbilicus and dissected down to the fascia, which was then scored, grasped and elevated. The abdomen was then entered. An 0 Vicryl was placed in a syyrrr-br-wljiv fashion for closure at the end of the case. A balloon trocar was inserted into the abdomen and pneumoperitoneum was achieved. Direct visualization of the laparoscope, a 5 mm trocar was placed in the subxiphoid region and two 5 mm trocars were placed in the right upper quadrant. The gallbladder was grasped, elevated. There are multiple adhesions to the gallbladder, which were then taken down with both blunt and cautery dissection. The cystic duct and cystic artery were then dissected out. Clips were placed on the proximal and distal portion of the cystic artery. Clip was placed on distal portion of the cystic duct, which was then partially transected. A cholangiogram was then performed. There were no filling defects. Contrast made its way into the duodenum. The catheter was removed and clips were placed on the proximal portion of the cystic duct and this was then completely transected. Hook cautery was used to dissect the gallbladder from the gallbladder fossa achieving hemostasis. It was placed in an Endobag and removed through the 12 mm trocar site. I also inspected multiple adhesions in the lower pelvis. No other pathology noted. The abdomen was irrigated with copious amounts of irrigation and suction. The abdomen was then desufflated. The trocars removed. The 0 Vicryl placed in a ozyzgx-xs-nmusc fashion at the beginning of the case was then tied closing the fascial defect. The skin was then closed using 4-0 Monocryl in subcuticular fashion. The abdomen was then washed and dried and Skin Affix was placed over the incisions. The patient tolerated procedure well without any complications. She was taken to the recovery room in stable condition. Job ID: [id number] DocumentID: [id number] Dictated Date: 11/02/2018 13:56:26 Net Developer With [employer] Date: 11/02/2018 15:55:18 Dictated By: MAIA TINOCO DO
--- NOTE | 2018-11-02 20:08 | Diagnostic Imaging Report ---
INDICATION: Abdominal pain. EXAMINATION: Fluoroscopy. Fluoroscopic assistance was provided for Dr. Tinoco during his laparoscopic cholecystectomy procedure. 8 seconds of fluoroscopy time was utilized. 36 spot films of the right upper quadrant were obtained. FINDINGS: There are laparoscopic devices in place and there has been opacification of the common bile duct via a cystic duct catheter. Common bile duct is not significantly dilated and there is no defect within the duct to suggest a retained calculus. Contrast is seen extending into the small bowel and into the main pancreatic duct. IMPRESSION: Fluoroscopic assistance was provided for Dr. Tinoco. Dictated by: Dictated on workstation # [id number]
== END 2018-11-02 15:00 | disposition home or self-care (01) ==
LOC: SDC 10:02
PROVIDERS: ATTEND Surgery
DX: K80.12 Calculus of gallbladder with acute and chronic cholecystitis without obstruction (principal); I10 Essential (primary) hypertension; K21.9 Gastro-esophageal reflux disease without esophagitis; Z79.82 Long term (current) use of aspirin; Z79.899 Other long term (current) drug therapy
CPT/HCPCS: 87081; 94664

== ENCOUNTER → 2019-09-25 | Outpatient (CLI) | payer MEDICARE, OTHER ==
[~2019-09-25] MED LIST changes: +ACHD5005 PO; +DOCU-143 PO
--- NOTE | 2019-09-25 16:31 | Diagnostic Imaging Report ---
INDICATION: Asymptomatic postmenopausal screening COMPARISON: Baseline FINDINGS: AP Spine L1-L4: [BMD (g/cm2): 0.946] [T-Score: -2.1] [Z-Score: -0.7] [BMD Previous: NA] [BMD % Change: NA] LT Hip Neck: [BMD (g/cm2): 0.635] [T-Score: -2.9] [Z-Score: -1.2] LT Hip Total: [BMD (g/cm2):.658] [T-Score:-2.8] [Z-Score: -1.2] [BMD Previous: NA] [BMD % Change: NA] RT Hip Neck: [BMD (g/cm2):0.609] [T-Score:-3.1] [Z-Score:-1.4] RT Hip Total: [BMD (g/cm2):0.635] [T-score:-3.0] [Z-Score:-1.4] [BMD Previous:NA] [BMD % Change:NA] *Indicates significant change from prior examination based on 95% confidence level. World Health Organization criteria for BMD interpretation classify patients as Normal (T-score at or above -1.0), Osteopenic (T-score between -1.0 and -2.5) or Osteoporotic (T-score at or below -2.5). LIMITATIONS AND MODIFICATION: None. FRACTURE RISK (FRAX SCORE): The ten year probability of (%): Major Osteoporotic Fracture: [23.2] Hip Fracture: [9.5] IMPRESSION: 1. Osteoporosis. 2. Baseline examination. 3. See below National Osteoporosis Foundation guidelines on when to potentially initiate pharmacologic therapy. Based on the National Osteoporosis Foundation Guidelines, pharmacologic treatment should be initiated in any of the following, unless clinical conditions suggest otherwise: * Any patient with prior fragility fracture of the hip or vertebrae. A spine fracture indicates 5X risk for subsequent spine fracture and 2X risk for subsequent hip fracture. * Osteoporosis (T-score <-2.5). * Postmenopausal women and men age 50 and older with low bone mass/osteopenia (T-score between -1.0 and -2.5) by DXA and 10-year major osteoporotic fracture greater than 20% or a 10-year probability of hip fracture greater than 3%. These fracture risks are supplied above in the FRAX score, if applicable. * Clinician judgement and/or patient preferences may indicate treatment for people with 10-year fracture probabilities above or below these levels. Dictated by: Dictated on workstation # [id number]
== END ==
LOC: RAD 13:51
PROVIDERS: ATTEND Family Medicine
DX: M81.0 Age-related osteoporosis without current pathological fracture (principal)
CPT/HCPCS: 77080

== ENCOUNTER 2020-10-13 05:37 | Outpatient (CLI) | payer MEDICARE, OTHER ==
[~2020-10-13] VITALS: Ht 172.7 cm; Wt 74.5 kg
[~2020-10-13 05:37] MED LIST changes: -LISI10TA2 PO; +LISI10TA25 PO
[2020-10-13] MEDS ORDERED: ALEN70TA80 PO (14:10)
[2020-10-13] MEDS ORDERED: LUTE20TA PO (14:44)
[2020-10-13] MEDS ORDERED: CHOL400T PO (14:44)
[2020-10-13] MEDS ORDERED: CYAN50008 PO (14:44)
== END 2020-10-13 14:49 | disposition home or self-care (01) ==
LOC: PREOP 05:37 → EDSTATUS 11:00 → PREOP 14:49
PROVIDERS: ATTEND Urology
DX: Z01.818 Encounter for other preprocedural examination (principal)

== ENCOUNTER 2020-10-20 06:40 | Day surgery (SDC) | payer MEDICARE, OTHER ==
[2020-10-20] VITALS (12 sets, daily range): BP systolic 120–157; BP diastolic 63–84
[~2020-10-20] VITALS: Ht 172 cm; Wt 74.5 kg
[~2020-10-20 06:40] MED LIST changes: +ALEN70TA80 PO; +CHOL400T PO; +CYAN50008 PO; +LUTE20TA PO
[2020-10-20] MEDS ORDERED: ESTRADIOL VAGINAL CREAM 42.5 GM (ESTRACE) VG ONE (06:45)
[2020-10-20] MEDS ORDERED: ceFAZolin INJECTION 1,000 MG in WATER (STERILE) FOR INJECTION 10 ML IV ONE ×4 (06:45)
[2020-10-20] MEDS ORDERED: LIDOCAINE/EPI 1%-1:100,000 (XYLOCAINE) 30ML ONE (06:45)
[2020-10-20] MEDS ORDERED: LACTATED RINGERS 1,000 ML IV PRN (06:45)
--- NOTE | 2020-10-20 07:09 | Progress Note-Pre Operative ---
Pre-Operative Progress Note H&P Reviewed The H&P was reviewed, patient examined and no changes noted. Date Seen by Provider: Oct 20, 2020 Time Seen by Provider: 07:09 Date H&P Reviewed: Oct 20, 2020 Time H&P Reviewed: 07:09 Pre-Operative Diagnosis: CYSTOCELE AND JAMEL JUDY CARRILLO MD Oct 20, 2020 07:09
--- NOTE | 2020-10-20 07:13 | Progress Note-Post Operative ---
Post-Operative Progess Note Surgeon (s)/Safety Advisor (s) Surgeon JUDY CARRILLO MD Safety Advisor: NONE Pre-Operative Diagnosis CYSTOCELE AND JAMEL Post-Operative Diagnosis SAME Procedure & Operative Findings Date of Procedure 10/20/20 Procedure Performed/Findings ANTERIOR REPAIR, PVS AND CYSTOSCOPY Anesthesia Type GENERAL Estimated Blood Loss Estimated blood loss (mL): LESS THAN 50 CC Specimens/Packing Specimens Removed NONE TO PATH Packin GM ESTRACE VAG PACK JUDY CARRILLO MD Oct 20, 2020 07:12
[2020-10-20] MEDS: LACTATED RINGERS 1,000 ML IV PRN ×2 (07:15→08:08)
[2020-10-20] MEDS ORDERED: MIDAZOLAM 2 MG/2 ML (VERSED) VIAL ONE (07:23)
[2020-10-20] MEDS ORDERED: ROCURONIUM 10 MG/ML 5 ML SYRINGE IV ONE (07:23)
[2020-10-20] MEDS ORDERED: fentaNYL INJ 100 MCG/2 ML AMP ONE (07:23)
[2020-10-20] MEDS ORDERED: LIDOCAINE PF 2% 5 ML (XYLOCAINE) VIAL ONE (07:23)
[2020-10-20] MEDS ORDERED: ONDANSETRON 4 MG/2 ML (SDV) Z0FRAN ONE (07:23)
[2020-10-20] MEDS ORDERED: proPOfol 200 MG/20 ML (DIPRIVAN) VIAL IV ONE (07:23)
[2020-10-20] MEDS ORDERED: SEVOFLURANE (ULTANE) 15 ML INHAL SOLN ONE (08:14)
[2020-10-20] MEDS ORDERED: GLYCOPYRROLATE 0.2 MG/ML (ROBINUL) 2 ML VIAL ONE (08:16)
[2020-10-20] MEDS ORDERED: NEOSTIGMINE 3 MG/3 ML VIAL ONE (08:16)
[2020-10-20] MEDS: LACTATED RINGERS 1,000 ML IV SCH ×3 (08:40→21:33)
[2020-10-20] MEDS ORDERED: PROMETHAZINE INJ 25 MG/ML (PHENERGAN) AMP IVP ONE (08:45)
[2020-10-20] MEDS ORDERED: ONDANSETRON 4 MG/2 ML (SDV) Z0FRAN IVP PRN (08:45)
[2020-10-20] MEDS ORDERED: HYDROmorphone 2 MG/ML VIAL (DILAUDID) IV ONE (08:45)
[2020-10-20] MEDS ORDERED: MEPERIDINE (DEMEROL) INJ 50 MG/ML IVP ONE (08:45)
[2020-10-20] MEDS ORDERED: morphine INJ 10 MG/ML 1ML (SYR OR VIAL) IVP ONE (08:45)
--- NOTE | 2020-10-20 12:41 | OPERATIVE REPORT ---
DATE OF SERVICE: 10/20/2020 PREOPERATIVE DIAGNOSES: Cystocele and stress urinary incontinence. POSTOPERATIVE DIAGNOSES: Cystocele and stress urinary incontinence. OPERATION PERFORMED: Anterior repair with pubovaginal sling and cystoscopy. SURGEON: Sebastián Carrillo MD ANESTHESIA: General. COMPLICATIONS: None. DESCRIPTION OF PROCEDURE: Under satisfactory general anesthesia, the patient in extended lithotomy position, the abdomen, genitalia and thigh and the vagina were prepped and draped in the usual sterile fashion. Sifuentes was inserted and the bladder was drained, the catheter to dependent drainage. The anterior vaginal wall was infiltrated with 2% lidocaine with epinephrine. A midline incision was made in the anterior vaginal wall, carried down through the mucosa. The fascia was dissected off of the mucosa of the vagina. Dissection was carried toward the pubic arch. The fascia was approximated with several suture of 2-0 Vicryl giving excellent support and elevation of the bladder. The Solyx device was then passed on both sides using the described technique. The sling was sitting nicely under the mid urethra with no twist and no tension with passage of a curved hemostat easily between it and the underlying tissue. The catheter was removed and cystoscopy confirmed intact bladder, ureteral orifices and urethra with presence of the sling under the mid urethra. The bladder was left half full. Cystoscope was removed. Manual Valsalva maneuver was negative. Catheter was reinserted draining clear fluid. The excess vaginal mucosa was excised sharply and the edges were sutured with a running 2-0 Vicryl Rapide type suture. A 2 grams Estrace vaginal pack was inserted. Estimated blood loss was less than 50 mL, none of which was replaced. Needle, sponge, instrument count correct x2. The patient tolerated the procedure and anesthesia well and was sent to recovery room in stable condition. Job ID: [id number] DocumentID: [id number] Dictated Date: 10/20/2020 08:29:29 Envelope Sealer Date: 10/20/2020 12:40:17 Dictated By: SEBASTIÁN CARRILLO MD
[2020-10-20] MEDS: KETOROLAC 30 MG/ML VIAL IV PRN ×2 (13:35→21:32)
[2020-10-21 02:00] VITALS: BP 121/61
[2020-10-21 06:35] VITALS: BP 111/58
[2020-10-21 08:00] VITALS: BP 124/64
--- NOTE | 2020-10-21 08:14 | Anesthesia-General Post-Op ---
General Patient Condition Mental Status/LOC: Same as Preop Cardiovascular: Satisfactory Nausea/Vomiting: Absent Respiratory: Satisfactory Pain: Controlled Complications: Absent Post Op Complications Complications None Follow Up Care/Instructions Patient Instructions None needed. Anesthesia/Patient Condition Patient Condition Patient is doing well, no complaints, stable vital signs, no apparent adverse anesthesia problems. No complications reported per nursing. DOUG SKAGGS CRNA Oct 21, 2020 08:14
--- NOTE | 2020-10-21 09:32 | Progress Note - Urology ---
Progress Note-Urology Progress Notes/Assess & Plan Progress/Assessment & Plan VOIDING WELL. EMPTIES WELL. DRY. HAPPY. NO COMPLAINTS. HOME WITH INSTRUCTIONS Final Diagnosis [facility] JUDY CARRILLO MD Oct 21, 2020 09:32
--- NOTE | 2020-10-21 09:34 | Discharge Inst-Urology ---
Discharge Inst-Urology Reconcile Patient Problems Problems Reviewed?: Yes Final Diagnosis [facility] Patient Instructions/Follow Up Plan/Assessment/Instructions Please make appointment to been seen in office in 2 weeks. Rest till then Showers, no bath Keep bowels soft and moving Increase oral fluids for 48 hours and then as needed. Diet as tolerated. If questions or concerns contact your physician Or seek help at emergency department. JUDY CARRILLO MD Oct 21, 2020 09:34
[2020-10-21] MEDS ORDERED: TRM50T PO (10:56)
[2020-10-21] MEDS ORDERED: CIPR-225 PO (10:56)
[2020-10-21 11:35] VITALS: BP 124/64
== END 2020-10-21 11:35 | disposition home or self-care (01) ==
LOC: SDC 06:40 → WS 08:59 → SDC 10-21 11:35
PROVIDERS: ATTEND Urology
DX: N81.10 Cystocele, unspecified (principal); N39.3 Stress incontinence (female) (male); M81.0 Age-related osteoporosis without current pathological fracture; I10 Essential (primary) hypertension; Z79.899 Other long term (current) drug therapy; Z90.89 Acquired absence of other organs; Z98.51 Tubal ligation status; Z90.710 Acquired absence of both cervix and uterus; Z79.82 Long term (current) use of aspirin; Z82.49 Family history of ischemic heart disease and other diseases of the circulatory system; Z83.3 Family history of diabetes mellitus; Z80.3 Family history of malignant neoplasm of breast
CPT/HCPCS: 57240; 57288; 87081; 94664; C1771

== ENCOUNTER 2021-04-13 11:59 | Outpatient (CLI) | payer MEDICARE, OTHER ==
[~2021-04-13] VITALS: Ht 175.3 cm; Wt 79.4 kg
[2021-04-13 11:52] VITALS: BP 129/74
[~2021-04-13 11:59] MED LIST changes: +CIPR-225 PO; -CYAN50008 PO; +CYAN50009 PO; +TRM50T PO
[2021-04-13] MEDS ORDERED: diphenhydrAMINE 50 MG/ML INJ (BENADRYL) IV PRN (12:15)
[2021-04-13] MEDS ORDERED: ONDANSETRON 4 MG/2 ML (SDV) Z0FRAN IV PRN (12:15)
[2021-04-13] MEDS ORDERED: EPINEPHrine INJECTION 1 MG/ML AMP IM PRN (12:15)
[2021-04-13] MEDS ORDERED: ACETAMINOPHEN 500 MG TAB (TYLENOL) PO PRN (12:15)
[2021-04-13] MEDS ORDERED: CASIRIVIMAB/IMDEVIMAB 1,200 MG in NS (IVPB) 250 ML IV ONE (12:15)
[2021-04-13 13:11] VITALS: BP 132/76
== END 2021-04-13 14:00 | disposition home or self-care (01) ==
LOC: INFUSION 11:59
PROVIDERS: ATTEND Registered Nurse
DX: Z23 Encounter for immunization (principal); U07.1 COVID-19